=== PATIENT | male | born 1955 | race Hispanic/Latino ===

== ENCOUNTER 2017-08-20 08:30 | Emergency (ER) | payer OTHER ==
[2017-08-20 08:34] VITALS: BP 144/85; PULSE 103; RESP 20; TEMP 98.3; O2SAT 95
[2017-08-20 08:39] VITALS: BMI 27.8
[2017-08-20] MEDS ORDERED: Ofloxacin 0.3% Ophth Soln OU STA (09:00)
--- NOTE | 2017-08-20 09:00 | C.PDOC ---
History Of Present Illness 61 year old male presents to ED for evaluation of redness, itchiness, and discharge from bilateral eyes for the last 3 days. Patient complains of cold, cough, and congestion for the past few days. Notes taking Benadryl, and using sinus nasal spray. Denies visual changes, sore throat, fever, or chills. He denies wearing contact lens or eyeglasses. Time Seen by Provider: 08/20/17 08:42 Chief Complaint (Nursing): Eye Problem History Per: Patient History/Exam Limitations: no limitations Onset/Duration Of Symptoms: Days Current Symptoms Are (Timing): Still Present Injury To Eye?: No Associated Symptoms: Itching, Discharge From Eye. denies: FB Sensation Recent travel outside of the [place]: No Additional History Per: Patient Past Medical History Reviewed: Historical Data, Nursing Documentation, Vital Signs Vital Signs: Last Vital Signs Temp 98.3 F 08/20/17 08:33 Pulse 103 H 08/20/17 08:33 Resp 20 08/20/17 08:33 BP 144/85 08/20/17 08:33 Pulse Ox 95 08/20/17 09:15 - Medical History PMH: HTN, Hypercholesterolemia Family History: States: Unknown Family Hx - Social History Hx Alcohol Use: Yes Hx Substance Use: No - Immunization History Hx Tetanus Toxoid Vaccination: No Hx Influenza Vaccination: No Hx Pneumococcal Vaccination: No Review Of Systems Except As Marked, All Systems Reviewed And Found Negative. Eyes: Positive for: Redness, Other (discharge from eyes). Negative for: Vision Change ENT: Positive for: Nose Congestion. Negative for: Throat Pain Cardiovascular: Negative for: Chest Pain Respiratory: Positive for: Cough. Negative for: Shortness of Breath, Sputum Neurological: Negative for: Headache, Dizziness Physical Exam - Physical Exam Appears: Non-toxic, No Acute Distress Skin: Normal Color, Warm, Dry Head: Atraumatic, Normacephalic Eye(s): bilateral: Other (crusty discharge around the eyes, diffuse injection) Ear(s): Bilateral: Normal Nose: Normal Oral Mucosa: Moist, No Drooling Throat: Normal, No Erythema, No Exudate Neck: Normal ROM, Supple Cardiovascular: Rhythm Regular Respiratory: Normal Breath Sounds, No Rales, No Rhonchi, No Wheezing Extremity: Normal ROM Neurological/Psych: Oriented x3, Normal Speech ED Course And Treatment O2 Sat by Pulse Oximetry: 95 (RA) Pulse Ox Interpretation: Normal Medical Decision Making Medical Decision Making: Impression: 61 year old male with redness, itchiness, and discharge from both eyes. 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 - Scribe Statement The provider has reviewed the documentation as recorded by the Scribe Shellie Spain All medical record entries made by the Oswaldibe were at my direction and personally dictated by me. I have reviewed the chart and agree that the record accurately reflects my personal performance of the history, physical exam, medical decision making, and the department course for this patient. I have also personally directed, reviewed, and agree with the discharge instructions and disposition.
== END 2017-08-20 09:22 | disposition home or self-care (01) ==
LOC: C.ER 08:30
DX: H10.9 Unspecified conjunctivitis (principal); J06.9 Acute upper respiratory infection, unspecified

== ENCOUNTER 2017-08-26 09:05 | Emergency (ER) | payer OTHER ==
[2017-08-26 09:05] VITALS: BMI 27.8
[2017-08-26 09:14] VITALS: BP 163/71; PULSE 96; RESP 18; TEMP 97.7; O2SAT 97
--- NOTE | 2017-08-26 09:33 | C.PDOC ---
History Of Present Illness 61-year-old male presents to the ED complaining of a cough for 6 days. Cough is productive of green phlegm. Otherwise patient denies any fever, chest pain, SOB , dyspnea on exertion, or other associated complaints. Denies prior hx of asthma or smoking. COUGH X 6 DAYS. +PROD GREEN. NO FEVER, CP, SOB/WARE OTHER ASSOC SX. DENIES HO ASTHMA, SMOKING. EXAM NONTOXIC NARD LUNGS CTA B/L NO W/R/R NO ACTIVE COUGH REMAINDER NEG Time Seen by Provider: 08/26/17 09:11 Chief Complaint (Nursing): Cough, Cold, Congestion History Per: Patient History/Exam Limitations: no limitations Onset/Duration Of Symptoms: Days (x6) Current Symptoms Are (Timing): Still Present Past Medical History Reviewed: Historical Data, Nursing Documentation, Vital Signs Vital Signs: Last Vital Signs Temp 97.7 F 08/26/17 09:09 Pulse 96 H 08/26/17 09:09 Resp 18 08/26/17 09:09 BP 163/71 H 08/26/17 09:09 Pulse Ox 97 08/26/17 10:47 - Medical History PMH: HTN, Hypercholesterolemia Other Surgeries: Nose surgery Family History: States: Unknown Family Hx - Social History Hx Alcohol Use: Yes Hx Substance Use: No - Immunization History Hx Tetanus Toxoid Vaccination: No Hx Influenza Vaccination: No Hx Pneumococcal Vaccination: No Review Of Systems Except As Marked, All Systems Reviewed And Found Negative. Constitutional: Negative for: Fever Cardiovascular: Negative for: Chest Pain Respiratory: Positive for: Cough, Sputum (green). Negative for: Shortness of Breath, SOB with Excertion Physical Exam - Physical Exam Appears: Non-toxic, No Acute Distress Skin: Warm, Dry Head: Atraumatic, Normacephalic Eye(s): bilateral: Normal Inspection, PERRL, EOMI Nose: Normal Oral Mucosa: Moist Neck: Normal ROM, Supple Chest: Symmetrical Cardiovascular: Rhythm Regular Respiratory: Normal Breath Sounds (Lungs CTA bilaterally), No Rales, No Rhonchi , No Wheezing, Other (NARD, no active cough) Extremity: Bilateral: Atraumatic, Normal Color And Temperature, Normal ROM Pulses: Left Radial: Normal, Right Radial: Normal Neurological/Psych: Oriented x3, Normal Speech ED Course And Treatment O2 Sat by Pulse Oximetry: 97 (RA) Pulse Ox Interpretation: Normal - Other Rad CXR X-Ray: Read By Radiologist Interpretation: Accession No. : [id number]. Patient Name / ID : MIRIAM ZALDIVAR / [id number]. Exam Date : 08/26/2017 09:22:28 ( Approved ). Study Comment : Sex / Age : M / 61Y. Creator : Houston Ervin MD. Dictator : Houston Ervin MD. Theology Teacher : Manager International : Houston Ervin MD. Approver2 : Report Date : 08/26/2017 09:42:25. My Comment : . HISTORY: cough. COMPARISON: No prior. TECHNIQUE: Chest PA and lateral. FINDINGS: LUNGS: No active pulmonary disease. PLEURA: No significant pleural effusion identified. No pneumothorax apparent. CARDIOVASCULAR: Normal. OSSEOUS STRUCTURES: No significant abnormalities. VISUALIZED UPPER ABDOMEN: Normal. OTHER FINDINGS: None. IMPRESSION: No active disease. Progress - Data Reviewed Data Reviewed: Diagnostic imaging - Patient Status Patient status: Stable - Patient Plan Patient Plan: Discharge, F/U with PCP Medical Decision Making Medical Decision Making: Initial Impression: 61 y/o M with productive cough Initial Plan: --Chest X-Ray Informed patient of normal x-ray results. Counseled regarding diagnosis of bronchitis and plan for outpatient treatment. Patient will be discharged home with prescriptions for zithromax and tessalon perles. Disposition Counseled Patient/Family Regarding: Studies Performed, Diagnosis, Need For Followup, Rx Given - Disposition Referrals: [facility] [Outside] [facility] [Outside] Disposition: HOME/ ROUTINE Disposition Time: 09:30 Condition: GOOD Prescriptions: Azithromycin 250 mg PO DAILY #6 tab Benzonatate [Tessalon Perles] 200 mg PO TID PRN #15 sgl PRN Reason: Cough Instructions: Acute Bronchitis, Adult (DC) Forms: [facility] [employer] ([place]an) - Clinical Impression Clinical Impression: Bronchitis - Scribe Statement The provider has reviewed the documentation as recorded by the Scribe (Micheline Escobar) Provider Attestation: All medical record entries made by the Scribe were at my direction and personally dictated by me. I have reviewed the chart and agree that the record accurately reflects my personal performance of the history, physical exam, medical decision making, and the department course for this patient. I have also personally directed, reviewed, and agree with the discharge instructions and disposition.
--- NOTE | 2017-08-26 09:44 | RAD ---
HISTORY: cough COMPARISON: No prior. TECHNIQUE: Chest PA and lateral FINDINGS: LUNGS: No active pulmonary disease. PLEURA: No significant pleural effusion identified. No pneumothorax apparent. CARDIOVASCULAR: Normal. OSSEOUS STRUCTURES: No significant abnormalities. VISUALIZED UPPER ABDOMEN: Normal. OTHER FINDINGS: None. IMPRESSION: No active disease.
== END 2017-08-26 09:47 | disposition home or self-care (01) ==
LOC: C.ER 09:05
DX: J40 Bronchitis, not specified as acute or chronic (principal)